=== PATIENT | male | born 1965 | race Two or more races ===

== ENCOUNTER 2020-10-13 09:43 | Inpatient (IN) | payer BC ==
[~2020-10-13] VITALS: Ht 175.3 cm; Wt 83.5 kg
--- NOTE | 2020-10-13 11:10 | NUR ---
PT RIKI FROM HOME. ROOMED. C/O SOB X 10 DAYS. HYPOXIC ON RA. PLACED ON O2@4L TOLERATING WELL. EXPOSED TO SON WHO IS COVID +. PT TESTED NEGATIVE ON 09/30/20. AWAITING MD CAMACHO.
--- NOTE | 2020-10-13 11:59 | NUR ---
DR KWOK AT [facility] FOR EVAL.
[2020-10-13] MEDS ORDERED: DEXAMETHASONE SOD PHOSPHATE 10 MG/ML VIAL IV ONE (12:00)
--- NOTE | 2020-10-13 12:19 | NUR ---
power grader operator in for chest xray.
[2020-10-13] MEDS ORDERED: DEXAMETHASONE SOD PHOSPHATE 10 MG/ML VIAL ONE (12:20)
[2020-10-13 12:22] LABS: BASOPHILS % (AUTO) 0.2 % (0.0-2.0); EOSINOPHILS % (AUTO) 0.1 % (0.0-6.0); HEMATOCRIT 42 % (39-51); HEMOGLOBIN 13.9 g/dL (13.5-17.5); LYMPHOCYTES # (AUTO) 0.5 /CMM (0.8-4.8); LYMPHOCYTES % (AUTO) 2.3 % (20.0-44.0); MEAN CORPUSCULAR HGB CONC 34 g/dl (31.0-36.0); MEAN CORPUSCULAR VOLUME 93 fL (80-96); MONOCYTES # (AUTO) 0.7 /CMM (0.1-1.30); MONOCYTES % (AUTO) 3.6 % (2.0-12.0); NEUTROPHILS # (AUTO) 18.7 /CMM (1.8-8.9); NEUTROPHILS % (AUTO) 93.8 % (43.0-81.0); PLATELET COUNT (AUTO) 298 /CMM (150-450); RED BLOOD CELL COUNT(AUTO) 4.49 MIL/uL (4.5-6.0); WHITE BLOOD COUNT (AUTO) 19.9 K/uL (4.3-11.0)
--- NOTE | 2020-10-13 12:25 | NUR ---
insisting on a ct w/ contrast. dr ha made aware.
[2020-10-13 12:27] LABS: CALCIUM, SERUM 8.7 mg/dL (8.5-10.1); CREATININE 1.4 mg/dL (0.6-1.3)
[2020-10-13 12:33] LABS: ALBUMIN 2.6 g/dL (3.4-5.0); BILIRUBIN,DIRECT 0.5 mg/dL (0.0-0.2); TOTAL PROTEIN, SERUM 7.4 g/dL (6.4-8.2)
[2020-10-13 14:08] LABS: LYMPHOCYTES % (MANUAL) 3 % (16-48); MONOCYTES % (MANUAL) 3 % (0-11.0); NEUTROPHILS % (MANUAL) 94 (42-76)
[2020-10-13] MEDS ORDERED: BENZ-38 PO (14:10)
[2020-10-13] MEDS ORDERED: OMEP20CA15 PO (14:10)
[2020-10-13] MEDS ORDERED: ALBU2.5V38 NEB (14:10)
[2020-10-13] MEDS ORDERED: CEFTRIAXONE 1GM BAG (ER ONLY) 50 ML IV ONE (14:25)
[2020-10-13] MEDS ORDERED: AZITHROMYCIN 500 MG in IV D5W 250 ML IV ONE (14:30)
[2020-10-13] MEDS ORDERED: CEFTRIAXONE 1GM BAG (ER ONLY) 1 GM/50 ML PIGGYBACK IV ONE (14:30)
[2020-10-13 19:06] LABS: C-REACTIVE PROTEIN 28.9 mg/dL (0.0-0.9)
--- NOTE | 2020-10-13 20:00 | NUR ---
ASSUMED CARE FOR PATIENT AT THIS TIME. PT RESTING IN BED. DRY COUGH NOTED. O2 SAT 88% ON 5L. PT PLACED ON SIMPLE MASK 7L, PT TOLERATING WELL O2 NOW SAT 97%. PT AAOX4. RESPIRATIONS EVEN AND UNLABORED. AFEBRILE. STILL ON MONITOR. CALL LIGHT WITHIN REACH. WILL CONTINUE TO MONTIOR
[2020-10-13] MEDS ORDERED: HEPARIN SODIUM, PORCINE 5000 UNITS/1 ML VIAL ONE (20:28)
[2020-10-13] MEDS ORDERED: IV NS 0.9% 1,000 ML IV PRN (20:30)
[2020-10-13] MEDS ORDERED: ZOLPIDEM TARTRATE 5 MG TABLET PO PRN (20:30)
[2020-10-13] MEDS ORDERED: ONDANSETRON HCL/PF 4 MG/2 ML VIAL IVP PRN (20:30)
[2020-10-13] MEDS ORDERED: HYDROCODONE/APAP 5/325MG TABLET PO PRN (20:30)
[2020-10-13] MEDS ORDERED: ACETAMINOPHEN 325 MG TABLET PO PRN (20:30)
[2020-10-13] MEDS ORDERED: MAGNESIUM HYDROXIDE 30 ML UDC PO PRN (20:30)
[2020-10-13] MEDS: CEFTRIAXONE 1 G in IV D5W 50 ML IV SCH (20:30)
[2020-10-13] MEDS: HEPARIN SODIUM, PORCINE 5000 UNITS/1 ML VIAL SQ SCH (20:44)
--- NOTE | 2020-10-13 21:00 | NUR ---
PT PROVIDED WITH FOOD AND WATER PER REQUEST
--- NOTE | 2020-10-13 21:50 | NUR ---
PT REQUESTING FOR MEDICATION TO HELP SLEEP. NOTED PRN ORDER AMBIEN 5MG PO, WILL MEDICATE PATEINT ORDERED
--- NOTE | 2020-10-13 21:52 | NUR ---
PT AMBULATORY TO RESTROOM WITH STEADY GAIT
[2020-10-13] MEDS ORDERED: ZOLPIDEM TARTRATE 5 MG TABLET ONE (22:12)
--- NOTE | 2020-10-13 22:17 | NUR ---
PT REQUESTING TO HOLD AMBIEN AT THIS TIME
--- NOTE | 2020-10-14 01:46 | NUR ---
RESTING COMFORTABLY IN BED. VITAL SIGNS STABLE. CALL LIGHT WITHIN REACH. STILL ON MONITOR, WILL CONTINUE TO MONITOR
--- NOTE | 2020-10-14 06:00 | NUR ---
NOTED INCREASED SOB, PT BEGAN TO DESAT 82%. PT STILL ON 8L SIMPLE MASK AND REPOSITIONED INTO PRONE POSITION, TOLERATING WELL, O2 SAT NOW 99%
--- NOTE | 2020-10-14 06:57 | NUR ---
REPORT GIVEN TO YESSENIA GONZALEZ FOR JIMMIE. ROOM CHANGED TO 207-2
--- NOTE | 2020-10-14 07:06 | NUR ---
PT TRANSFERRED PER ACLS PROTOCOL
[2020-10-14 07:10] VITALS: BP 122/69
--- NOTE | 2020-10-14 07:10 | NUR ---
TELE/RN ADMITTING NOTE Received patient in [facility] A&O x 4, transferred safely to bed at room 207-2. Denies any pain/discomfort at this time. Breathing even and non-labored on 15 L via NRB, saturating at 99%. No respiratory or cardiac distress noted. On tele monitor, reading SB 57. IV access noted on LAC #20 g, patent and intact, and flushing well. Skin assessment refused by patient, states "there's no wounds, I do not see the point in assessing." Educated risks and benefits. Belongings noted and listed, placed on chart. Bed locked to its lowest position, side rails x 2 up, call light in hand. Will continue with current medical management.
--- NOTE | 2020-10-14 07:24 | NUR ---
UNABLE TO RETURN AMBIEN 5MG PILL IN [facility], AMBIEN PILL WALKED OVER AND RETURNED TO PHARMACY
[2020-10-14 07:51] LABS: EOSINOPHILS % (AUTO) 0.3 % (0.0-6.0); HEMATOCRIT 40 % (39-51); HEMOGLOBIN 13.3 g/dL (13.5-17.5); LYMPHOCYTES # (AUTO) 0.5 /CMM (0.8-4.8); LYMPHOCYTES % (AUTO) 2.6 % (20.0-44.0); MEAN CORPUSCULAR HGB CONC 33 g/dl (31.0-36.0); MEAN CORPUSCULAR VOLUME 95 fL (80-96); MONOCYTES # (AUTO) 0.8 /CMM (0.1-1.30); MONOCYTES % (AUTO) 4.3 % (2.0-12.0); NEUTROPHILS # (AUTO) 16.9 /CMM (1.8-8.9); NEUTROPHILS % (AUTO) 92.8 % (43.0-81.0); PLATELET COUNT (AUTO) 288 /CMM (150-450); RED BLOOD CELL COUNT(AUTO) 4.24 MIL/uL (4.5-6.0); WHITE BLOOD COUNT (AUTO) 18.2 K/uL (4.3-11.0)
[2020-10-14] MEDS: DEXAMETHASONE SOD PHOSPHATE 4 MG/ML VIAL IV SCH (08:10)
[2020-10-14] MEDS: HEPARIN SODIUM, PORCINE 5000 UNITS/1 ML VIAL SQ SCH (08:11)
[2020-10-14] MEDS: PANTOPRAZOLE 40 MG TABLET.DR PO SCH ×2 (08:12→16:27)
[2020-10-14 08:25] LABS: ALBUMIN 2.2 g/dL (3.4-5.0); BILIRUBIN,DIRECT 0.3 mg/dL (0.0-0.2); BILIRUBIN,TOTAL 0.5 mg/dL (0.2-1.0); CALCIUM, SERUM 8.4 mg/dL (8.5-10.1); MAGNESIUM 2.9 mg/dL (1.8-2.4); PHOSPHORUS 4.2 mg/dL (2.5-4.9); POTASSIUM 4.8 mmol/L (3.5-5.1); TOTAL PROTEIN, SERUM 6.6 g/dL (6.4-8.2)
--- NOTE | 2020-10-14 09:00 | NUR ---
TELE/RN NOTE Patient's Justa called, insisting to have Shabana ENVIRONMENTAL MONITORING SPECIALIST to talk to the patient's PCP Dr. Faria [phone] regarding the need for PT. Notified Shabana ENVIRONMENTAL MONITORING SPECIALIST and gave PCP's number, states she "will call the PCP."
--- NOTE | 2020-10-14 09:00 | NUR ---
TELE/RN AYSHA Donald NP at bedside, talked to patient about plan of care.
[2020-10-14] MEDS: FUROSEMIDE 40 MG/4 ML VIAL IV SCH ×2 (11:29→16:27)
--- NOTE | 2020-10-14 13:40 | NUR ---
TELE/RN NOTE Patient signed blood transfusion consent form for convalescent plasma and placed on chart. Convalescent plasma IND forms signed by Dr. Mckenzie and placed on chart, copy given to screedman/laborer.
[2020-10-14 16:00] VITALS: BP 104/61
[2020-10-14] MEDS: APIXABAN 5 MG TABLET PO SCH (16:28)
--- NOTE | 2020-10-14 19:12 | NUR ---
TELE/RN CLOSING NOTE Patient awake in bed, A&O x 4. All needs met and attended to. Denies any pain/discomfort at this time. Breathing even and non-labored on 15 L via NRB, saturating at 99%. No respiratory or cardiac distress noted. On tele monitor, reading SB 48. IV access noted on LAC #20 g, patent and intact, and flushing well. Fall precautions maintained. Will endorse to shift leader nurse.
[2020-10-14 20:00] VITALS: BP 122/56
--- NOTE | 2020-10-14 20:01 | NUR ---
SHOE SINGER OPENING NOTES RECEIVED PATIENT AWAKE, ALERT AND ORIENTED X3. ABLE TO MAKE NEEDS KNOWN. NO SOB NOTED, NO S/SX OF ANY ACUTE DISTRESS NOTED. DENIES PAIN OR DISCOMFORT AT THIS TIME. RESPIRATIONS ARE EVEN AND UNLABORED. PT REMAINS ON EXTERNAL SWEET POTATO DISINTEGRATOR READING SB WITH BBB 51. PT NOTED ON NON-REBREATHER MASK @15LPM, 02 SATURATION @96%. HOB ELEVATED. IV ACCESS NOTED IN LFA G#20 INTACT, PATENT AND FLUSHING WELL. SAFETY PRECAUTIONS IN PLACE. BED IN LOWEST LOCKED POSITION, SIDE RAILS UP X2, CALL LIGHT WITHIN REACH. WILL CONTINUE TO MONITOR.
[2020-10-14] MEDS: CEFTRIAXONE 1 G in IV D5W 50 ML IV SCH (20:48)
[2020-10-15] VITALS (9 sets, daily range): BP systolic 112–129; BP diastolic 51–78
--- NOTE | 2020-10-15 06:17 | NUR ---
SHIP CARPENTER CLOSING NOTES PATIENT IN BED ASLEEP, AROUSES EASILY. NO SOB NOTED, NO S/SX OF ANY ACUTE DISTRESS NOTED. DENIES PAIN OR DISCOMFORT AT THIS TIME. RESPIRATIONS ARE EVEN AND UNLABORED. PT REMAINS ON EXTERNAL BUSINESS OBJECTS ARCHITECT READING SB WITH BBB 54. PATIENT ON NON-REBREATHER MASK @15LPM, 02 SATURATION @96%. HOB ELEVATED. IV ACCESS NOTED IN LFA G#20 INTACT, PATENT AND FLUSHING WELL. SAFETY PRECAUTIONS IN PLACE. BED IN LOWEST LOCKED POSITION, SIDE RAILS UP X2, CALL LIGHT WITHIN REACH. WILL ENDORSE TO AM SHIFT FOR CONTINUITY OF CARE. Addendum: 10/15/20 at 0644 by ISMAEL HAWLEY RN BUSINESS OBJECTS ARCHITECT SB 44
[2020-10-15 06:55] LABS: BASOPHILS % (AUTO) 0.1 % (0.0-2.0); HEMATOCRIT 38 % (39-51); HEMOGLOBIN 12.7 g/dL (13.5-17.5); LYMPHOCYTES # (AUTO) 0.5 /CMM (0.8-4.8); LYMPHOCYTES % (AUTO) 3.2 % (20.0-44.0); MEAN CORPUSCULAR HGB CONC 34 g/dl (31.0-36.0); MEAN CORPUSCULAR VOLUME 93 fL (80-96); MONOCYTES # (AUTO) 0.8 /CMM (0.1-1.30); MONOCYTES % (AUTO) 5.3 % (2.0-12.0); NEUTROPHILS # (AUTO) 13.5 /CMM (1.8-8.9); NEUTROPHILS % (AUTO) 91.4 % (43.0-81.0); PLATELET COUNT (AUTO) 311 /CMM (150-450); RED BLOOD CELL COUNT(AUTO) 4.07 MIL/uL (4.5-6.0); WHITE BLOOD COUNT (AUTO) 14.8 K/uL (4.3-11.0)
[2020-10-15 07:47] LABS: ALBUMIN 2.2 g/dL (3.4-5.0); BILIRUBIN,DIRECT 0.2 mg/dL (0.0-0.2); BILIRUBIN,TOTAL 0.5 mg/dL (0.2-1.0); CALCIUM, SERUM 8.7 mg/dL (8.5-10.1); CREATININE 1.1 mg/dL (0.6-1.3); MAGNESIUM 2.4 mg/dL (1.8-2.4); POTASSIUM 4.4 mmol/L (3.5-5.1); TOTAL PROTEIN, SERUM 6.5 g/dL (6.4-8.2)
--- NOTE | 2020-10-15 07:50 | NUR ---
SCALE BALANCER OPENING NOTE PATIENT IS IN BED RESTING COMFORTABLY. PATIENT IS IN NO ACUTE DISTRESS. NO SOB NOTED. PATIENT IS ON 15L NON REBREATHER MASK. HOB ELEVATED. PATIENT BREATHING IS EVEN AND UNLABORED. PATIENT IS ON THE SOLAR PROJECT MANAGER READING SB 50. PATIENT BED ALARM IS ON. SAFETY PRECAUTIONS ARE IN PLACE. PATIENT BED IS LOCKED AND IN THE LOWEST POSITION. CALL LIGHT WITHIN REACH. WILL CONTINUE TO MONITOR.
[2020-10-15] MEDS: DEXAMETHASONE SOD PHOSPHATE 4 MG/ML VIAL IV SCH (08:46)
[2020-10-15] MEDS: PANTOPRAZOLE 40 MG TABLET.DR PO SCH ×2 (08:46→16:46)
[2020-10-15] MEDS: APIXABAN 5 MG TABLET PO SCH ×2 (08:47→16:48)
--- NOTE | 2020-10-15 09:00 | NUR ---
RN NOTE SPOKE WITH BLOOD BANK AND PER BLOOD BANK CONVALESCENT PLASMA NOT AVAILABLE AT THIS TIME.
[2020-10-15 09:41] LABS: BAND % (MANUAL) 2 % (0.0-5.0); LYMPHOCYTES % (MANUAL) 6 % (16-48); MONOCYTES % (MANUAL) 6 % (0-11.0); MYELOCYTES % 1 % (0-0); NEUTROPHILS % (MANUAL) 85 (42-76)
--- NOTE | 2020-10-15 17:13 | NUR ---
RN NOTE SPOKE WITH EROS FROM BLOOD BANK AND PER EROS CONVALESCENT PLASMA IS NOT AVAILABLE AND HAS NOT BEEN DELIVERED BY [email or web address]. PER EROS HE WILL CALL WHEN AVAILABLE. Addendum: 10/15/20 at 1717 by KYLE MORTON RN RN NOTE SPOKE WITH EROS FROM BLOOD BANK AND PER EROS CONVALESCENT PLASMA IS NOT AVAILABLE AND HAS NOT BEEN DELIVERED BY [email or web address]. ORDER IS PROCESSED PER EROS. PER EROS HE WILL CALL WHEN AVAILABLE.
--- NOTE | 2020-10-15 19:04 | NUR ---
ANGIOGRAPHY TECHNOLOGIST CLOSING NOTE PATIENT IS IN BED RESTING COMFORTABLY. PATIENT IS IN NO ACUTE DISTRESS. NO SOB NOTED. PATIENT IS ON 15L NON REBREATHER MASK. PATIENT IS ON THE SOLID WASTE MANAGER READING SINUS TAMARA 50S. PATIENT KEPT CLEAN DRY AND COMFORTABLE. THROUGHOUT THE SHIFT. NO FACIAL GRIMACING NOTED. PATIENTS BED ALARM IS ON. PATIENTS BED IS LOCKED AND IN THE LOWEST POSITION. CALL LIGHT WITHIN REACH. ENDORSE TO THE CYBER INTELLIGENCE ANALYST NURSE FOR JIMMIE.
[2020-10-15] MEDS: CEFTRIAXONE 1 G in IV D5W 50 ML IV SCH (19:38)
--- NOTE | 2020-10-15 19:45 | NUR ---
CHIEF OPTOMETRY SERVICE OPENING NOTES RECEIVED REPORT FROM KELLEY RN AND KYLE RN; WILL CONT PLAN OF CARE
[2020-10-16] VITALS (7 sets, daily range): BP systolic 114–130; BP diastolic 57–77
--- NOTE | 2020-10-16 01:00 | NUR ---
CARBON COATER MACHINE OPERATOR NOTES TOLERATED CONVALESCENT PLASMA TRANSFUSION WELL WITH NO REACTIONS; WILL CONT PLAN OF CARE
--- NOTE | 2020-10-16 04:49 | NUR ---
SOIL CONSERVATION TECHNICIAN NOTES PATIENT COMPLAINING OF COUGH; MADE AWARE; PER LUCIANA SAAVEDRA 10CC Q6HR PRN; ORDERS RECEIVED AND CARRIED OUT; PER PATIENT, OKAY FOR NOW AND IS HAPPY TO KNOW HE HAS MEDICATION FOR HIS COUGH IF EVER IT GETS WORSE; PATIENT DRINKING WATER FOR NOW AND FEELS BETTER; WILL CONT PLAN OF CARE
[2020-10-16] MEDS ORDERED: GUAIFENESIN/CODEINE 10 ML UDC PO PRN (05:00)
[2020-10-16 06:51] LABS: BASOPHILS % (AUTO) 0.2 % (0.0-2.0); HEMATOCRIT 38 % (39-51); HEMOGLOBIN 12.6 g/dL (13.5-17.5); LYMPHOCYTES # (AUTO) 0.5 /CMM (0.8-4.8); LYMPHOCYTES % (AUTO) 3.6 % (20.0-44.0); MEAN CORPUSCULAR HGB CONC 34 g/dl (31.0-36.0); MEAN CORPUSCULAR VOLUME 92 fL (80-96); MONOCYTES # (AUTO) 0.8 /CMM (0.1-1.30); MONOCYTES % (AUTO) 5.4 % (2.0-12.0); NEUTROPHILS # (AUTO) 13.7 /CMM (1.8-8.9); NEUTROPHILS % (AUTO) 90.8 % (43.0-81.0); PLATELET COUNT (AUTO) 314 /CMM (150-450); RED BLOOD CELL COUNT(AUTO) 4.08 MIL/uL (4.5-6.0); WHITE BLOOD COUNT (AUTO) 15.1 K/uL (4.3-11.0)
--- NOTE | 2020-10-16 07:24 | NUR ---
FEATURES REPORTER CLOSING NOTES PATIENT RESTING IN BED COMFORTABLY; A/OX4; BREATHING EVENLY AND UNLABORED; NO SOB NOTED; TOLERATING 15LPM VIA NON-REBREATHER MASK WELL; TELE MONITOR READS SINUS TAMARA; L AC #20 INTACT AND PATENT; TOLERATING IVF WELL; ISOLATION PRECAUTIONS MAINTAINED; SAFETY PRECAUTIONS IMPLEMENTED; ALL NEEDS RENDERED; WILL ENDORSE CONTINUITY OF CARE TO ONCOMING SHIFT
--- NOTE | 2020-10-16 07:40 | NUR ---
TELE/RN OPENING NOTES RECEIVED PATIENT ON BED AWAKE ALERT AND ORIENTED X4. PATIENT IS ON 15L OXYGEN VIA NON REBREATHER MASK TOLERATING WELL. PATIENT IN NO APPARENT RESPIRATORY DISTRESS NOTED. NO COMPLAINED OF PAIN AT THIS TIME. WILL CONTINUE TO MONITOR.
[2020-10-16 08:08] LABS: ALBUMIN 2.2 g/dL (3.4-5.0); BILIRUBIN,TOTAL 0.5 mg/dL (0.2-1.0); CALCIUM, SERUM 8.4 mg/dL (8.5-10.1); MAGNESIUM 2.1 mg/dL (1.8-2.4); PHOSPHORUS 3.7 mg/dL (2.5-4.9); POTASSIUM 4.5 mmol/L (3.5-5.1); TOTAL PROTEIN, SERUM 6.3 g/dL (6.4-8.2)
[2020-10-16] MEDS: PANTOPRAZOLE 40 MG TABLET.DR PO SCH ×2 (08:08→17:45)
[2020-10-16] MEDS: DEXAMETHASONE SOD PHOSPHATE 10 MG/ML VIAL IV SCH (09:21)
[2020-10-16] MEDS: APIXABAN 5 MG TABLET PO SCH ×2 (09:22→17:49)
--- NOTE | 2020-10-16 10:32 | NUR ---
TELE/RN NOTES DR. HARRIS ORDER 6 L OXYGEN VIA NASAL CANNULA. NOTED AND CARRIED OUT.
--- NOTE | 2020-10-16 13:46 | NUR ---
TELE/RN NOTES IKE WANT TO TALK TO MD. DR. VINCENT IS AWARE. PHONE NUMBER WAS GIVEN.
[2020-10-16 15:15] LABS: C-REACTIVE PROTEIN 5.1 mg/dL (0.0-0.9)
--- NOTE | 2020-10-16 19:30 | NUR ---
cutter out opening notes Received Pt from morning nurse. Pt is resting in bed comfortably. Pt is alert and orientedX4. Respiration on 6 L NC. No SOB. No S/S of distress noted. IV site at LAC# 20 is clean, intact and flushes well. Tele monitor showed sinus peggy hr at 47 bpm. Safety precautions is maintained. Bed at low position, brakes locked, side rails upX2, hob elevated, and call light is within reach. Will continue to monitor.
--- NOTE | 2020-10-16 19:39 | NUR ---
TELE/RN CLOSING NOTES PATIENT IS ON BED. ALERT AND ORIENTED X4. PATIENT IN NO APPARENT RESPIRATORY DISTRESS NOTED. NO COMPLAINED OF PAIN AT THIS TIME. PATIENT IS ON 6 L OXYGEN VIA NASAL CANNULA TOLERATING WELL. TELE MONITOR READING SINUS BRADYCARDIA 41-47 BPM. IV ACCESS AT LEFT AC # 20 PATENT AND INTACT. SEEN AND EXAMINED BY MD WITH ORDERS MADE AND CARRIED OUT. ALL DUE MEDICATIONS WAS ORDERS. SAFETY PRECAUTIONS WAS IN PLACED. BED IN LOWEST POSITION AND LOCKED. SIDERAILS UP X2. CALL LIGHT WITHIN REACH. WILL ENDORSED TO CENTRAL SUPPLY CLERK FOR JIMMIE.
[2020-10-16] MEDS: CEFTRIAXONE 1 G in IV D5W 50 ML IV SCH (20:05)
[2020-10-17] VITALS: BP 115/70
[2020-10-17 04:00] VITALS: BP 119/73
--- NOTE | 2020-10-17 07:05 | NUR ---
disability case manager closing notes Pt is resting in bed comfortably. Pt is alert and orientedX4. Respiration on 6 L NC. No SOB. No S/S of distress noted. VS is stable. Afebrile. Routine meds were given as ordered. IV site at LAC# 20 is clean, intact and flushes well. Tele monitor showed sinus peggy hr at 47 bpm. Safety precautions is maintained. Bed at low position, brakes locked, side rails upX2, hob elevated, and call light is within reach. Will endorse to morning nurse for JIMMIE.
--- NOTE | 2020-10-17 07:15 | NUR ---
RN Note Patient Received. Patient is awake, alert and oriented x4. Patient is verbally responsive. Breathing even and non labored. No signs of acute distress noted. Patient is noted with IV site to LAC 29G is noted patent and intact. Patient continue on tele monitor and is noted to be sinus peggy. Safety precautions in place. Bed is in lowest position and in lowest position. All needs attended to promptly. Call light within reach. Will continue plan of care as ordered.
[2020-10-17 07:28] LABS: BASOPHILS % (AUTO) 0.1 % (0.0-2.0); EOSINOPHILS % (AUTO) 0.2 % (0.0-6.0); HEMATOCRIT 39 % (39-51); HEMOGLOBIN 13.1 g/dL (13.5-17.5); LYMPHOCYTES # (AUTO) 0.7 /CMM (0.8-4.8); MEAN CORPUSCULAR HGB CONC 34 g/dl (31.0-36.0); MEAN CORPUSCULAR VOLUME 92 fL (80-96); MONOCYTES # (AUTO) 1.1 /CMM (0.1-1.30); MONOCYTES % (AUTO) 6.9 % (2.0-12.0); NEUTROPHILS # (AUTO) 14.8 /CMM (1.8-8.9); NEUTROPHILS % (AUTO) 88.8 % (43.0-81.0); PLATELET COUNT (AUTO) 324 /CMM (150-450); RED BLOOD CELL COUNT(AUTO) 4.21 MIL/uL (4.5-6.0); WHITE BLOOD COUNT (AUTO) 16.7 K/uL (4.3-11.0)
[2020-10-17 07:46] LABS: CALCIUM, SERUM 8.7 mg/dL (8.5-10.1); CREATININE 0.9 mg/dL (0.6-1.3); PHOSPHORUS 3.4 mg/dL (2.5-4.9); POTASSIUM 4.3 mmol/L (3.5-5.1)
[2020-10-17 08:00] VITALS: BP 169/72
[2020-10-17] MEDS: PANTOPRAZOLE 40 MG TABLET.DR PO SCH ×2 (08:31→16:48)
[2020-10-17] MEDS: DEXAMETHASONE SOD PHOSPHATE 10 MG/ML VIAL IV SCH (08:31)
[2020-10-17] MEDS: APIXABAN 5 MG TABLET PO SCH ×2 (08:33→16:48)
--- NOTE | 2020-10-17 09:00 | NUR ---
RN Note Patient was placed on 10L via simple face mask and tolerating well with O2 saturation at 96% tolerating well. Dr. Mckenzie at bedside to examine patient.
--- NOTE | 2020-10-17 11:59 | NUR ---
RN NOTE PATIENT'S PCP IS DR. DANG
[2020-10-17 12:00] VITALS: BP 163/78
--- NOTE | 2020-10-17 13:00 | NUR ---
RN NOTES PATIENT'S PCP DR. ETIENNE CALLED, DISCUSSED WITH PCP RE: PATIENT'S CURRENT MEDICAL CONDITION, LABS AND CURERNT PLAN OF CARE.
[2020-10-17 13:12] LABS: LYMPHOCYTES % (MANUAL) 2 % (16-48); MONOCYTES % (MANUAL) 12 % (0-11.0); MYELOCYTES % 2 % (0-0); NEUTROPHILS % (MANUAL) 84 (42-76)
[2020-10-17 15:44] LABS: SERUM AMMONIA 50 umol/L (11-32)
[2020-10-17 15:46] LABS: IRON, SERUM 63 ug/dl (50-175); TOTAL IRON BINDING CAPACITY 220 ug/dl (250-450)
--- NOTE | 2020-10-17 19:00 | NUR ---
RN NOTES PATIENT RESTING COMFORTABLY IN BED. ALERT AND AWAKE WATCHING TV. REMAIN ON 10 L/MIN VIA FACE MASK WITH SPO2 OF 96%. DENIES ANY C/O PAIN NOR DISCOMFORT AT THIS TIME. NO FEVER OBSERVED DURING THE SHIFT. LEFT AC # 20 SL INTACT AND PATENT. ABLE TO VERBALIZE NEEDS. BED IN LOWEST POSITION ,LOCKED. BED ALARM ON. IN NO APPARENT DISTRESS.
[2020-10-17] MEDS: CEFTRIAXONE 1 G in IV D5W 50 ML IV SCH (19:56)
[2020-10-17 20:00] VITALS: BP 125/83
[2020-10-18] VITALS: BP 112/75
[2020-10-18 04:00] VITALS: BP 124/91
[2020-10-18 06:37] LABS: BASOPHILS % (AUTO) 0.1 % (0.0-2.0); EOSINOPHILS % (AUTO) 0.3 % (0.0-6.0); HEMATOCRIT 39 % (39-51); HEMOGLOBIN 13.4 g/dL (13.5-17.5); LYMPHOCYTES % (AUTO) 5.3 % (20.0-44.0); MEAN CORPUSCULAR HGB CONC 34 g/dl (31.0-36.0); MEAN CORPUSCULAR VOLUME 92 fL (80-96); MONOCYTES % (AUTO) 6.7 % (2.0-12.0); NEUTROPHILS % (AUTO) 87.6 % (43.0-81.0); PLATELET COUNT (AUTO) 345 /CMM (150-450); WHITE BLOOD COUNT (AUTO) 17.2 K/uL (4.3-11.0)
[2020-10-18 06:38] LABS: LYMPHOCYTES # (AUTO) 0.9 /CMM (0.8-4.8); MONOCYTES # (AUTO) 1.1 /CMM (0.1-1.30); NEUTROPHILS # (AUTO) 15.1 /CMM (1.8-8.9)
[2020-10-18 07:04] LABS: ALBUMIN 2.2 g/dL (3.4-5.0); BILIRUBIN,TOTAL 0.4 mg/dL (0.2-1.0); CALCIUM, SERUM 8.7 mg/dL (8.5-10.1); PHOSPHORUS 3.8 mg/dL (2.5-4.9); POTASSIUM 4.3 mmol/L (3.5-5.1); TOTAL PROTEIN, SERUM 6.4 g/dL (6.4-8.2)
--- NOTE | 2020-10-18 07:07 | NUR ---
RN OPENING NOTES RECEIVED PT AWAKE AT THIS TIME. AO X4. NO SOB NOTED, NO S/S OF ANY ACUTE DISTRESS NOTED. NO C/O PAIN NOTED AT THIS TIME. RESPIRATIONS ARE EVEN AND UNLABORED WITH EQUAL RISE AND FALL IN CHEST. PT NOTED ON OXYGEN 10LPM FACE MASK. IV ACCESS NOTED IN LAC G#20. INTACT, PATENT AND FLUSHING WELL. PT ON EXTERNAL TELE SHEAR GRINDER OPERATOR READING SR 71. ASPIRATION SAFETY PRECAUTION IN PLACE AND MAINTAINED AT ALL TIMES. BED IN LOWEST LOCKED POSITION, HOB ELEVATED, SIDE RAILS UP X 2, CALL LIGHT AND TABLE WITHIN REACH. WILL CONTINUE TO MONITOR
[2020-10-18 07:12] LABS: D-DIMER 1.17 mg/L(FEU (0.17-0.50)
--- NOTE | 2020-10-18 07:28 | NUR ---
RN CLOSING NOTES Pt on bed, no new unusalities noted. All nursing needs attended, due meds given as ordered. Kept on bed clean, dry and comfortable. On fall and aspiration precautions. Endorsed.
[2020-10-18 08:00] VITALS: BP 92/72
[2020-10-18] MEDS ORDERED: LACTULOSE 10 G/15 ML UDC (PYXIS) PO PRN (08:00)
[2020-10-18] MEDS: APIXABAN 5 MG TABLET PO SCH ×2 (08:38→16:40)
[2020-10-18] MEDS: DEXAMETHASONE SOD PHOSPHATE 10 MG/ML VIAL IV SCH (08:38)
[2020-10-18] MEDS: PANTOPRAZOLE 40 MG TABLET.DR PO SCH ×2 (08:38→16:38)
[2020-10-18 09:49] LABS: BAND % (MANUAL) 2 % (0.0-5.0); EOSINOPHILS % (MANUAL) 1 % (0-4); LYMPHOCYTES % (MANUAL) 5 % (16-48); MONOCYTES % (MANUAL) 1 % (0-11.0); MYELOCYTES % 5 % (0-0); NEUTROPHILS % (MANUAL) 86 (42-76)
[2020-10-18 16:00] VITALS: BP 103/70
--- NOTE | 2020-10-18 19:07 | NUR ---
RN CLOSING NOTES PT AWAKE IN BED AT THIS TIME. PT REMAINED STABLE THROUGHOUT SHIFT. ALL CARE, NEED, MEDICATIONS AND TREATMENT ADMINISTERED ANTICIPATED PER ORDER. ASPIRATION AND SAFETY PRECAUTION IN PLACE AND MAINTAINED AT ALL TIMES. BED IN LOWEST LOCKED POSITION, HOB ELEVATED, SIDE RAILS UP X 2, CALL LIGHT AND TABLE WITHIN REACH. ENDORSED TO CAN MARKER NURSE FOR JIMMIE
[2020-10-18 20:00] VITALS: BP 116/70
[2020-10-18] MEDS: CEFTRIAXONE 1 G in IV D5W 50 ML IV SCH (20:19)
--- NOTE | 2020-10-18 21:50 | NUR ---
CHROMIUM PLATER OPENING NOTE Patient awake in bed, A/O x4, ambulatory. Tele monitor sinus rhythm. Breathing even, clear, unlabored, on 10 LPM face mask. O2 sat 99%. No acute distress or SOB noted. Skin is warm, pink, dry, appropriate for ethnicity, intact. IV site LAC 20g, patent and intact, no signs of redness or infiltration. BS active all quadrants. Patient void via BRP without difficulty. Urine output clear and yellow. Bed in low position, wheels locked, side rails up x2, call light within reach.
[2020-10-19] VITALS: BP 108/73
[2020-10-19 04:00] VITALS: BP 112/71
--- NOTE | 2020-10-19 06:09 | NUR ---
ETHYLENE OXIDE PANELBOARD OPERATOR CLOSING NOTE Patient awake in bed, A/O x4, ambulatory. Tele monitor sinus rhythm/sinus peggy 50's. Breathing even, clear, unlabored, on 10 LPM face mask. O2 sat 99%. No acute distress or SOB noted. IV site LAC 20g, patent and intact, no signs of redness or infiltration. Patient void via BRP without difficulty. Urine output clear and yellow. All needs met. Bed in low position, wheels locked, side rails up x2, call light within reach.
[2020-10-19] MEDS: PANTOPRAZOLE 40 MG TABLET.DR PO SCH ×2 (06:58→16:19)
[2020-10-19 07:10] LABS: CALCIUM, SERUM 8.9 mg/dL (8.5-10.1); MAGNESIUM 2.1 mg/dL (1.8-2.4); PHOSPHORUS 3.6 mg/dL (2.5-4.9); POTASSIUM 4.1 mmol/L (3.5-5.1)
[2020-10-19 07:19] LABS: BASOPHILS # (AUTO) 0.1 /CMM (0.0-0.2); BASOPHILS % (AUTO) 0.4 % (0.0-2.0); EOSINOPHILS % (AUTO) 0.3 % (0.0-6.0); HEMATOCRIT 41 % (39-51); HEMOGLOBIN 13.4 g/dL (13.5-17.5); LYMPHOCYTES % (AUTO) 5.7 % (20.0-44.0); MEAN CORPUSCULAR HGB CONC 33 g/dl (31.0-36.0); MEAN CORPUSCULAR VOLUME 92 fL (80-96); MONOCYTES # (AUTO) 1.1 /CMM (0.1-1.30); MONOCYTES % (AUTO) 5.9 % (2.0-12.0); NEUTROPHILS # (AUTO) 15.9 /CMM (1.8-8.9); NEUTROPHILS % (AUTO) 87.7 % (43.0-81.0); PLATELET COUNT (AUTO) 317 /CMM (150-450); RED BLOOD CELL COUNT(AUTO) 4.39 MIL/uL (4.5-6.0); WHITE BLOOD COUNT (AUTO) 18.2 K/uL (4.3-11.0)
[2020-10-19 08:00] VITALS: BP 115/71
[2020-10-19] MEDS: DEXAMETHASONE SOD PHOSPHATE 10 MG/ML VIAL IV SCH (08:16)
[2020-10-19] MEDS: APIXABAN 5 MG TABLET PO SCH ×2 (08:16→16:27)
[2020-10-19 08:17] LABS: BAND % (MANUAL) 1 % (0.0-5.0); LYMPHOCYTES % (MANUAL) 8 % (16-48); MONOCYTES % (MANUAL) 4 % (0-11.0); NEUTROPHILS % (MANUAL) 87 (42-76)
[2020-10-19 12:00] VITALS: BP 115/76
[2020-10-19 16:00] VITALS: BP 119/71
--- NOTE | 2020-10-19 18:30 | NUR ---
REFERRAL MANAGER CLOSING NOTES PATIENT RESTING COMFORTABLY IN BED, AWAKE ,AO X4. NO SOB NOTED, NO S/S OF ANY ACUTE DISTRESS NOTED. BREATHING EVEN AND UNLABORED. ON RA AT THIS TIME. SATURATING AT 92%. PT HAS NC @3L BUT IS TITRATING OFF OXYGEN. PT STATES HE FEELS FINE AT THIS TIME AND WILL CONTINUE ON RA. NO C/O PAIN OR DISCOMFORT AT THIS TIME. IV ACCESS TO LAC G#20. PATENT AND INTACT, FLUSHING WELL. KEPT SL. ON TELE TRAFFIC LAW ATTORNEY READING SR /SB WITH HR IN THE LOW 50'S - 60'S. BED IN LOWEST LOCKED POSITION, HOB ELEVATED, SIDE RAILS UP X 2, CALL LIGHT WITHIN REACH. WILL ENDORSE TO ONCOMING SHIFT.
--- NOTE | 2020-10-19 19:38 | NUR ---
TELE/RN OPENING NOTES: RECEIVED PATIENT RESTING COMFORTABLY IN BED, A/OX4. NO SOB NOTED, ON RA AT THIS TIME. SATURATING AT 92%. NO S/S OF ANY ACUTE DISTRESS NOTED. BREATHING EVEN AND UNLABORED. PT HAS NC @ 3L BUT IS CURRENTLY TITRATING OFF OXYGEN. ON ROOM AIR CURRENTLY SATURATING AT 94%, PT STATES HE "FEELS FINE". NO C/O PAIN OR DISCOMFORT AT THIS TIME. IV ACCESS TO LAC G#20. PATENT AND INTACT, FLUSHING WELL. KEPT SL. ON CHICKEN TENDER READING SR/SB WITH HR IN THE LOW 50'S - 60'S. BED IN LOWEST LOCKED POSITION, HOB ELEVATED, SIDE RAILS UP X 2, CALL LIGHT WITHIN REACH. WILL CONTINUE TO MONITOR ACCORDINGLY.
[2020-10-19 20:00] VITALS: BP 110/68
[2020-10-20] VITALS (7 sets, daily range): BP systolic 106–122; BP diastolic 47–77
[2020-10-20 06:58] LABS: D-DIMER 0.76 mg/L(FEU (0.17-0.50)
[2020-10-20 06:59] LABS: BASOPHILS % (AUTO) 0.2 % (0.0-2.0); EOSINOPHILS % (AUTO) 0.2 % (0.0-6.0); HEMATOCRIT 40 % (39-51); HEMOGLOBIN 13.4 g/dL (13.5-17.5); LYMPHOCYTES # (AUTO) 1.3 /CMM (0.8-4.8); LYMPHOCYTES % (AUTO) 7.9 % (20.0-44.0); MEAN CORPUSCULAR HGB CONC 34 g/dl (31.0-36.0); MEAN CORPUSCULAR VOLUME 92 fL (80-96); MONOCYTES % (AUTO) 6.4 % (2.0-12.0); NEUTROPHILS % (AUTO) 85.3 % (43.0-81.0); PLATELET COUNT (AUTO) 311 /CMM (150-450); RED BLOOD CELL COUNT(AUTO) 4.34 MIL/uL (4.5-6.0); WHITE BLOOD COUNT (AUTO) 16.4 K/uL (4.3-11.0)
--- NOTE | 2020-10-20 07:40 | NUR ---
TELE/RN CLOSING NOTES: TOLERATED RA THROUGHOUT THE SHIFT 94-95%. NO SIGNIFICANT CHANGES IN CONDITION. ALL NURSING NEEDS MET AND RENDERED. SAFETY MEASURES IN PLACE. WILL CONTINUE PLAN OF CARE. ENDORSED TO DAY SHIFT FOR JIMMIE.
--- NOTE | 2020-10-20 08:00 | NUR ---
RN Opening note Received patient in bed, AO x 4 able to responds all stimuli, Pt does no appears pain or distress. Skin is warm to touch keep clean/dry intact IV site, respiratory even and unlabored on rrom air O2sat 92%. Kept locked bed with elevated HOB for aspiration precaution and ensure airway and lowest bed foe safety. Call light within reach, will continue to monitor.
[2020-10-20 08:21] LABS: BAND % (MANUAL) 2 % (0.0-5.0); EOSINOPHILS % (MANUAL) 1 % (0-4); LYMPHOCYTES % (MANUAL) 6 % (16-48); METAMYELOCYTES % 3 % (0-0); MONOCYTES % (MANUAL) 5 % (0-11.0); MYELOCYTES % 7 % (0-0); NEUTROPHILS % (MANUAL) 76 (42-76)
[2020-10-20] MEDS: PANTOPRAZOLE 40 MG TABLET.DR PO SCH ×2 (08:32→16:33)
[2020-10-20] MEDS: DEXAMETHASONE SOD PHOSPHATE 10 MG/ML VIAL IV SCH (08:33)
[2020-10-20] MEDS: APIXABAN 5 MG TABLET PO SCH ×2 (08:35→16:34)
[2020-10-20 09:31] LABS: ALBUMIN 2.3 g/dL (3.4-5.0); BILIRUBIN,DIRECT 0.1 mg/dL (0.0-0.2); BILIRUBIN,TOTAL 0.4 mg/dL (0.2-1.0); TOTAL PROTEIN, SERUM 6.4 g/dL (6.4-8.2)
--- NOTE | 2020-10-20 16:00 | NUR ---
Patient's O2sat 88% during walk in room.
--- NOTE | 2020-10-20 16:51 | NUR ---
RN NOTES SPO2 AT ROOM AIR 88% AT REST.
[2020-10-20 16:59] LABS: CALCIUM, SERUM 8.8 mg/dL (8.5-10.1); CREATININE 1.1 mg/dL (0.6-1.3); PHOSPHORUS 3.2 mg/dL (2.5-4.9); POTASSIUM 4.1 mmol/L (3.5-5.1)
[2020-10-20 17:30] LABS: C-REACTIVE PROTEIN 0.9 mg/dL (0.0-0.9)
--- NOTE | 2020-10-20 18:30 | NUR ---
RN closing Patient in bed resting, does no appears pain or discomfort. Skin is warm to touch keep clean/dry, intact site on left wrist 22 g with SL. Respiratory even and unlabored on room air O2sat 93%. Kept elevated HOB for ensure air way and aspiration precaution and lowest bed for safety. Call light within reach, will endorse police shift commander.
--- NOTE | 2020-10-20 19:10 | NUR ---
TELE/RN OPENING NOTES: RECEIVED PATIENT RESTING COMFORTABLY IN BED, A/OX4. NO SOB NOTED, ON RA AT THIS TIME. SATURATING AT 95%. NO S/S OF ANY ACUTE DISTRESS NOTED. BREATHING EVEN AND UNLABORED. NO C/O PAIN OR DISCOMFORT AT THIS TIME. IV ACCESS TO LAC G#20. PATENT AND INTACT, FLUSHING WELL. KEPT SL. ON SECRETARIAL STENOGRAPHER READING SR/SB WITH HR IN THE LOW 50'S - 60'S. BED IN LOWEST LOCKED POSITION, HOB ELEVATED, SIDE RAILS UP X 2, CALL LIGHT WITHIN REACH. WILL CONTINUE TO MONITOR ACCORDINGLY.
[2020-10-21] VITALS: BP 91/46
[2020-10-21 04:00] VITALS: BP 103/75
--- NOTE | 2020-10-21 06:00 | NUR ---
TELE/RN CLOSING NOTES: PATIENT REMAINS A/OX4. NO SOB NOTED, ON RA AT THIS TIME. SATURATING AT 95%. NO S/S OF ANY ACUTE DISTRESS NOTED. BREATHING EVEN AND UNLABORED. NO C/O PAIN OR DISCOMFORT AT THIS TIME. IV ACCESS TO LAC G#20. ON TILER READING SR. ANTICIPATING DC TODAY. BED IN LOWEST LOCKED POSITION, HOB ELEVATED, SIDE RAILS UP X 2, CALL LIGHT WITHIN REACH. ALL NURSING NEEDS MET AND RENDERED. ENDORSED TO DAYSHIFT FOR JIMMIE.
--- NOTE | 2020-10-21 07:15 | NUR ---
RN NOTE Patient Received. Patient is noted in bed, awake, alert and oriented x4. Breathing even and non labored. Patient continues on room air with no signs of acute distress noted or shortness of breath noted. IV site is noted to LAC 20G noted to be patent and intact. Safety measures in place. Bed is locked and in lowest position. Will continue plan of care as ordered.
[2020-10-21 08:00] VITALS: BP 122/69
[2020-10-21] MEDS: DEXAMETHASONE SOD PHOSPHATE 10 MG/ML VIAL IV SCH (08:31)
[2020-10-21] MEDS: PANTOPRAZOLE 40 MG TABLET.DR PO SCH ×2 (08:31→16:33)
[2020-10-21] MEDS: APIXABAN 5 MG TABLET PO SCH ×2 (08:34→16:34)
[2020-10-21] MEDS: DEXAMETHASONE 4 MG TABLET PO SCH (11:23)
[2020-10-21 12:00] VITALS: BP 104/56
[2020-10-21 16:00] VITALS: BP 107/65
--- NOTE | 2020-10-21 19:30 | NUR ---
RN NOTE Patient is noted in bed, awake, alert and oriented x4. Breathing even and non labored. Patient continues on room air with no signs of acute distress noted or shortness of breath noted. Skin is intact. No IV access with all medications changed to PO. All medications administered as per order. Safety measures in place. Bed is locked and in lowest position. All needs attended to promptly. Will endorse to continue plan of care as ordered.
[2020-10-21 20:00] VITALS: BP 115/70
--- NOTE | 2020-10-22 07:42 | NUR ---
INDUCTION MACHINE SETTER OPENING NOTES RECEIVED PATIENT IN BED, AWAKE, A/O X4. PATIENT ON ROOM AIR AT THIS TIME; BREATHING IS EVEN AND UNLABORED, NO SOB NOTED AT THIS TIME. NO COMPLAINS OF PAIN. LAC IV ACCESS G # 20 PRESENT AND INTACT. SAFETY PRECAUTIONS IN PLACE; BED IN LOW POSITION AND LOCKED, RAILS UP X2, CALL LIGHT WITHIN REACH. WILL CONTINUE TO MONITOR PATIENT.
[2020-10-22 08:00] VITALS: BP 131/75
[2020-10-22] MEDS: PANTOPRAZOLE 40 MG TABLET.DR PO SCH ×2 (08:11→16:04)
[2020-10-22] MEDS: APIXABAN 5 MG TABLET PO SCH ×2 (08:12→16:05)
[2020-10-22] MEDS: DEXAMETHASONE 4 MG TABLET PO SCH (08:12)
[2020-10-22 12:00] VITALS: BP 118/84
[2020-10-22 16:00] VITALS: BP 122/71
--- NOTE | 2020-10-22 19:18 | NUR ---
PROJECTION PRINTER CLOSING NOTES PATIENT IN BED, AWAKE, A/O X4. PATIENT ON ROOM AIR AT THIS TIME; BREATHING IS EVEN AND UNLABORED, NO SOB NOTED AT THIS TIME. NO COMPLAINS OF PAIN DURING SHIFT. LAC IV ACCESS G # 20 PRESENT AND INTACT. ALL NEEDS ATTENDED THROUGHOUT THE DAY. PATIENT WAITING TO GO HOME. SAFETY PRECAUTIONS IN PLACE; BED IN LOW POSITION AND LOCKED, RAILS UP X2, CALL LIGHT WITHIN REACH. DISCHARGE NOTES ENDORSED TO SAGGER SOAK NURSE. WILL ENDORSE TO SAGGER SOAK NURSE.
[2020-10-22 20:00] VITALS: BP 115/79
--- NOTE | 2020-10-22 20:25 | NUR ---
television repair teacher open/discharge note patient is being discharged home. was supposed to be DC with oxygen but there is a shortage. 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 patient is in stable condition. vital signs are temp 97.8 bp 115/79 hr 80 rr 20 o2 sat 95% on room air. patient does not have any wounds, iv removed, tele monitor removed. discharge paper and belongings list signed, exit care reviewed with patient. sent down to lobby with newspaper vendor for son to fern picker patient.
== END 2020-10-22 20:25 | disposition home or self-care (01) | DRG 177 ==
LOC: ER 09:53 → TRANSITION 18:53 → TELE2 10-14 06:34
PROVIDERS: ADMIT Nurse Practitioner Acute Care
PROC: XW13325 Transfusion of Convalescent Plasma (Nonautologous) into Peripheral Vein, Percutaneous Approach, New Technology Group 5 (ICD-10-PCS; principal; 2020-10-14)
DX: U07.1 COVID-19 (principal); J12.89 Other viral pneumonia; N17.0 Acute kidney failure with tubular necrosis; J96.01 Acute respiratory failure with hypoxia; E44.1 Mild protein-calorie malnutrition; E86.9 Volume depletion, unspecified; R74.01 Elevation of levels of liver transaminase levels; K76.1 Chronic passive congestion of liver; I27.21 Secondary pulmonary arterial hypertension; Z86.19 Personal history of other infectious and parasitic diseases; K75.4 Autoimmune hepatitis
CPT/HCPCS: 36415; 71045-TC; 71250-TC; 76705-TC; 80048-TC; 80053-TC; 80061-TC; 80076-TC; 82140-TC; 82550-TC; 82728-TC; 83540-TC; 83615-TC; 83735-TC; 84100-TC; 84484-TC; 85025-TC; 85378-TC; 85385-TC; 85610-TC; 86140-TC; 86709; 86803; 86850-TC; 87340; C9803; G0378; J0456; J0696; J1100; J1644; J1940; J7030; J7040; J7050; J7060; J8540; P9017-BL